=== PATIENT | female | born 1940 | race Caucasian/White ===

== ENCOUNTER → 2022-09-18 | Day surgery (SDC) | payer MEDICARE ==
[~2022-09-18] MED LIST: B-121000 MC2; B-6200 MG; BIOTIN1 MG; CELEBREX200 MG PO; FISH OIL 1,0001 EAC7; HYOSCYAMINE SULFATE 0.5 MG/ML INJ ONE; LACTATED RINGER'S 1,000 ML ONE; LIDOCAINE HCL 2% LOCAL INJ 5 ML SDV VIAL INJ ONE; PROPOFOL IV EMULSION 10 MG/ML 20 ML VIAL ONE; SLOW-FE; TAMOXIFEN CITRA10 MG PO; TRAZODONE HCL100 MG PO; VITAMIN D31 ML
[2022-09-18 15:50] VITALS: BP 126/61
== END | disposition home or self-care (01) ==
LOC: OR 11:07
PROVIDERS: ATTEND Internal Medicine Gastroenterology
DX: K29.60 Other gastritis without bleeding (principal); Z86.010 Personal history of colon polyps; K29.50 Unspecified chronic gastritis without bleeding; K44.9 Diaphragmatic hernia without obstruction or gangrene; K57.30 Diverticulosis of large intestine without perforation or abscess without bleeding; K64.8 Other hemorrhoids; K64.4 Residual hemorrhoidal skin tags; R19.8 Other specified symptoms and signs involving the digestive system and abdomen; R15.9 Full incontinence of feces; D50.9 Iron deficiency anemia, unspecified; R03.0 Elevated blood-pressure reading, without diagnosis of hypertension; M19.90 Unspecified osteoarthritis, unspecified site; Z88.8 Allergy status to other drugs, medicaments and biological substances; Z79.899 Other long term (current) drug therapy; Z85.3 Personal history of malignant neoplasm of breast; Z92.21 Personal history of antineoplastic chemotherapy; Z92.3 Personal history of irradiation
CPT/HCPCS: 43239; 45378; 88305; 88342; 93005; J1980; J2001; J2704; J7121; 88304; 88312